=== PATIENT | male | born 1955 | race Caucasian/White ===

== ENCOUNTER 2020-10-21 12:25 | Outpatient (CLI) | payer OTHER ==
[~2020-10-21 12:25] MED LIST: ALLOPURINOL300 MG PO; DIABETA2.5 MG PO; INDERAL LA80 MG PO; PACERONE200 MG NGT; PROZAC20 MG PO; SYNTHROID50 MCG PO; XANAX1 MG PO
== END 2020-10-21 12:36 | disposition home or self-care (01) ==
LOC: MRI 12:25
PROVIDERS: ATTEND Physical Medicine & Rehabilitation
DX: M48.02 Spinal stenosis, cervical region (principal); E11.42 Type 2 diabetes mellitus with diabetic polyneuropathy; M54.5 Low back pain; M47.816 Spondylosis without myelopathy or radiculopathy, lumbar region; E66.01 Morbid (severe) obesity due to excess calories; I10 Essential (primary) hypertension
CPT/HCPCS: 72141